=== PATIENT | female | born 1970 | race Two or more races ===

== ENCOUNTER 2024-10-15 17:24 | Inpatient (IN) | payer OTHER, MEDICAID, SELFPAY ==
[2024-10-15 17:58] VITALS: BP 151/89; PULSE 64; RESP 18; TEMP 37.1; O2SAT 98; BMI 33.8
--- NOTE | 2024-10-15 18:26 | XR_ITS ---
Examination: CT abdomen with intravenous contrast CT pelvis with intravenous contrast 2-D coronal reconstructions 2-D sagittal reconstructions Date and time of exam:October 15, 2024, 2038 hours INDICATIONS: Right lower abdominal pain beginning 2 days ago. CTDI: vol (mGy) 9.07. DLP: (mGycm) 502 Technique: Multiple axial sections of the abdomen and pelvis have been obtained. 64 slice high-resolution scanner used. 3 mm axial sections have been obtained, post intravenous injection of 60 cc Isovue-370. 2-D sagittal, coronal reconstructions obtained. Low dose protocols were performed. One or more of the following dose reduction techniques were used; automated exposure control, adjustment of the mA and/or KV according to patient size, use of iterative reconstruction technique. Findings: Diffuse fatty infiltration throughout the liver no focal liver or splenic lesions No gallstones Pancreas is not enlarged. No renal or ureteral calculi, no hydronephrosis Aorta normal size The appendix, coronal image 64 shows periappendiceal inflammatory change and is fluid-filled No pelvic abscess Anteverted uterus Grade 1 anterolisthesis L4 on L5 IMPRESSION: Acute appendicitis, no perforation or pelvic abscess
--- NOTE | 2024-10-15 18:26 | XR_ITS ---
Examination: Transvaginal ultrasound of the pelvis, complete Technique: Transvaginal sonographic images pelvis performed using owens scale imaging Exam date and time: October 15, 2024 1916 hours INDICATIONS: Right lower pelvic pain beginning 2 days ago FINDINGS: Uterus 7.8 cm endometrial stripe 0.4 cm No uterine mass Right ovary 2.0 cm arterial flow Left ovary 2.2 cm arterial flow IMPRESSION: Negative pelvic sonogram.
--- NOTE | 2024-10-15 18:27 | PD.EDRME ---
Rapid Medical Screening Exam E Arrival date/time: 10/15/24 17:24 53F with history of HTN presents to ED with 2 days of worsening RLQ pain. Pain is worse with movement. Patient denies diarrhea, dysuria, and vaginal bleeding. Chief Complaint: Abdominal Pain Time Seen by Provider: 10/15/24 17:38 Vital signs: Vital Signs Temperature 98.7 F 10/15/24 17:58 Pulse Rate 64 10/15/24 17:58 Respiratory Rate 18 10/15/24 17:58 Blood Pressure 151/89 H 10/15/24 17:58 Pulse Oximetry (%) 98 10/15/24 17:58 Oxygen Delivery Method Room Air 10/15/24 17:58
[2024-10-15 18:54] LABS: Basophils # (Auto) 0.1 Thou/mm3 (0.0-0.2); Basophils % (Auto) 1 % (0-2.5); Eosinophils # (Auto) 0.3 Thou/mm3 (0.0-0.5); Eosinophils % (Auto) 3 % (0-10); Hematocrit 42.1 % (36.0-46.0); Hemoglobin 14.3 g/dL (12.0-16.0); Immature Granulocytes Auto 0.02 Thou/mm3 (0.00-0.00); Lymphocytes # (Auto) 2.9 Thou/mm3 (1.0-4.8); Lymphocytes % (Auto) 32 % (10-50); Mean Corpuscular HGB Conc 34.0 g/dl (31.0-37.0); Mean Corpuscular Hemoglobin 29.3 pg (25.0-35.0); Mean Corpuscular Volume 86 fL (80-100); Monocytes # (Auto) 0.6 Thou/mm3 (0.0-0.8); Monocytes % (Auto) 6 % (0-12); Neutrophils # (Auto) 5.2 Thou/mm3 (1.8-7.7); Neutrophils % (Auto) 58 % (37-80); Nucleated Red Blood Cell # 0.00 Thou/mm3 (0.00-0.00); Nucleated Red Blood Cell % 0 /100 WBC (0); Platelet Count 173 Thou/mm3 (140-440); RDW Standard Deviation 39.2 fL (36.4-46.3); Red Blood Count 4.88 Miln/mm3 (4.00-5.20); White Blood Count 9.0 Thou/mm3 (3.6-11.0)
[2024-10-15 19:11] LABS: Alanine Aminotransferase 76 U/L (10-49); Albumin, Serum 5.1 gm/dL (3.5-5.0); Albumin/Globulin Ratio 1.8 (1.2-2.2); Alkaline Phosphatase 95 U/L (46-116); Anion Gap 10 (7-16); Aspartate Amino Transferase 65 U/L (0-34); BUN/Creatinine Ratio 14 Ratio (12-20); Bilirubin,Total 0.8 mg/dL (0.3-1.2); Blood Urea Nitrogen 10 mg/dL (9-23); Calcium 9.7 mg/dL (8.3-10.6); Calcium (Corrected) 9.7 mg/dL (8.5-10.1); Carbon Dioxide 28.8 mMol/L (20.0-31.0); Chloride 101 mMol/L (98-107); Creatinine (Component) 0.7 mg/dL (0.6-1.3); Estimated Creatinine Clearance 87.7 mL/min (>60); Globulin 2.8 gm/dL (2.3-3.5); Glucose 109 mg/dL (74-106); Osmolality,Calculated 279 (275-295); Potassium 3.8 mMol/L (3.4-5.1); Sodium 140 mMol/L (136-145); Total Protein 7.9 gm/dL (5.7-8.2); eGFR > 60 See Note
[2024-10-15 19:50] VITALS: BP 163/81; PULSE 62; RESP 18; TEMP 37; O2SAT 97
[2024-10-15] MEDS: MORPHINE SULF INJ 10 MG/ML VIAL 5 MG IVP (20:08)
[2024-10-15] MEDS: ONDANSETRON INJ 2 MG/ML INJ 2 ML 4 MG IVP (20:09)
--- NOTE | 2024-10-15 21:28 | PD.EDABDPN ---
ED Abdominal Pain RME/HPI General Chief Complaint: Abdominal Pain Stated complaint: Right lower quadrant abdominal pain Time seen by provider: 10/15/24 17:38 Arrival date/time: 10/15/24 17:24 RME / HPI RME / HPI narrative: 10/15/24 17:24 53F with history of HTN presents to ED with 2 days of worsening RLQ pain. Pain is worse with movement. Patient denies diarrhea, dysuria, and vaginal bleeding. Dr. Reyes?s Main ED Evaluation: 53yo female presenting with RLQ pain x 2 days described as aching and increasing with movement. No abnormal vaginal bleeding or dysuria. Notes subjective fever, but denies chills. No vomiting or diarrhea. Appetite diminished. PMH includes HTN. PSH unremarkable. Related Data Home Medications ?Medication ?Instructions ?Recorded ?Confirmed amlodipine 10 mg tablet 10 mg PO DAILY 10/15/24 10/15/24 lisinopril 40 mg tablet 40 mg PO DAILY 10/15/24 10/15/24 Previous Rx's ?Medication ?Instructions ?Recorded docusate sodium 100 mg capsule 100 mg PO BID #30 caps 10/16/24 hydrocodone 5 mg-acetaminophen 325 1 tab PO Q6HR PRN pain (scale 10/16/24 mg tablet score 7-10) #10 tabs ibuprofen 600 mg tablet 600 mg PO Q8H PRN pain (scale 10/16/24 score 4-6) #15 tabs Allergies Allergy/AdvReac Type Severity Reaction Status Date / Time NKA Allergy Unknown Uncoded 10/15/24 17:27 No Known Allergies Allergy Unknown Uncoded 10/15/24 17:27 Review of Systems Review of Systems Systems Reviewed: All systems reviewed, normal except as documented Past Medical History Past Medical History CARDIAC: Negative Cardiac Disorders or Congestive Heart Failure RESPIRATORY: Negative Chronic Obstructive Pulmonary Disease (COPD) or Asthma GENITOURINARY: Negative Renal Disease ENDOCRINE: Negative Diabetes Mellitus Type 1 or Diabetes Mellitus Type 2 HEMATOLOGIC: Negative Sickle Cell Disease Social History SMOKING STATUS: Never smoker ED Exam Narrative Physical exam: GENERAL APPEARANCE: alert and oriented x 4, appears apprehensive, c/o RLQ pain VITALS: All vitals were reviewed and the pulse ox is 97% on room air, which is normal according to my interpretation. HEENT: Normocephalic, atraumatic; pupils equal, round, reactive to light; EOMI; mucous membranes pink, moist; oropharynx clear NECK: Supple LUNGS: CTABL; no wheezes, no rales, no rhonchi HEART: Regular rate, regular rhythm; normal S1, S2; no murmurs ABDOMEN: non distended; soft, RLQ tenderness, equivocal peritoneal findings EXTREMITIES: atraumatic; no edema NEUROLOGIC: awake; alert and oriented x4; cranial nerves II-XII grossly intact; no focal sensory or motor deficits PSYCHIATRIC: appropriate mood and affect SKIN: warm, dry, normal color; no rashes Course Quality Measures none Orders Category Date Time Status CT Screening NOW Care 10/15/24 18:27 Completed Insert IV NOW Care 10/15/24 18:[address] abdomen pelvis w con Stat Exams 10/15/24 18:26 Completed US transvaginal Stat Exams 10/15/24 18:26 Completed CBC Stat Lab 10/15/24 18:46 Completed CMP [Comprehensive Metabolic Panel] Stat Lab 10/15/24 18:46 Completed Urinalysis, C/S if Indicated Stat Lab 10/15/24 22:16 Completed Morphine Inj Med 10/15/24 21:49 Discontinued 4 mg IVP Q1H PRN Morphine Inj Med 10/15/24 18:26 Discontinued 5 mg IVP X1 ONE Ondansetron Inj [Zofran Inj] Med 10/15/24 18:26 Discontinued 4 mg IVP X1 ONE Ondansetron Inj [Zofran Inj] Med 10/15/24 21:50 Discontinued 4 mg IVP X1 ONE Piper/Tazo 3.375 gm Premix [Zosyn] Med 10/15/24 21:49 Discontinued 3.375 gm in 50 ml IV X1 Vital Signs Vital signs: Vital Signs Temperature 98.7 F 10/15/24 17:58 Pulse Rate 64 10/15/24 17:58 Respiratory Rate 18 10/15/24 17:58 Blood Pressure 151/89 H 10/15/24 17:58 Pulse Oximetry (%) 98 10/15/24 17:58 Oxygen Delivery Method Room Air 10/15/24 17:58 Abdominal Pain MDM MDM Narrative MDM Narrative:: Scribe Attestation: 10/15/24 - Brinda García am scribing for and in the presence of Dr. D?Agostino. 53yo female presenting with RLQ pain x 2 days described as aching and increasing with movement. No abnormal vaginal bleeding or dysuria. Please see PE findings. Lab markers demonstrate normal WBC count, normal Hgb, and normal Platelet counts. Chemistries unremarkable except for mildly elevated blood sugar of 109. CT abdomen pelvis shows acute uncomplicated appendicitis. Patient hydrated with saline and given low dose narcotic analgesic and antiemetic with mild-moderate relief. Antibiotics initiated. No signs of sepsis. General surgery consulted. Hospitalist to admit. Patient data External records reviewed:: [facility] previous records (Per chart review, patient has no previous ED visits or admissions to this facility.) Clinical information provided by:: patient Social determinants that could affect healthcare access:: none Patient has the following chronic illnesses:: none How is presenting disease/condition affected by chronic disease/condition?: no chronic disease Evaluation data The following diagnostics were reviewed and interpreted by me:: lab results and radiology exam(s) Lab and/or radiology exams considered but not ordered:: none Interpretation Summary: [facility] Report Signed Patient: JIM ESPOSITO [place]. Record#: [id number] Birthdate: 1970 Age/Sex: 53 / F Location: [facility] Attending Dr: Ordering Physician: Neal Rivera PA-C Date of Service: 10/15/24 Procedure(s): US transvaginal Accession Number(s): [id number] cc: Gabriel Moreno PA-C; Donnie Nbole MD; Neal Rivera PA-C~ Examination: Transvaginal ultrasound of the pelvis, complete Technique: Transvaginal sonographic images pelvis performed using owens scale imaging Exam date and time: October 15, 2024 1916 hours INDICATIONS: Right lower pelvic pain beginning 2 days ago FINDINGS: Uterus 7.8 cm endometrial stripe 0.4 cm No uterine mass Right ovary 2.0 cm arterial flow Left ovary 2.2 cm arterial flow IMPRESSION: Negative pelvic sonogram. Dictated By: Donnie Noble MD Signed By: <Electronically signed by Donnie Noble MD in OV> 10/15/242006 [facility] Report Signed Patient: JIM ESPOSITO Record#: [id number] Birthdate: 1970 Age/Sex: 53 / F Location: [facility] Attending Dr: Ordering Physician: Neal Rivera PA-C Date of Service: 10/15/24 Procedure(s): CT abdomen pelvis w con Accession Number(s): [id number] cc: Gabriel Moreno PA-C; Donnie Noble MD; Neal Rivera PA-C~ Examination: CT abdomen with intravenous contrast CT pelvis with intravenous contrast 2-D coronal reconstructions 2-D sagittal reconstructions Date and time of exam:October 15, 2024, 2038 hours INDICATIONS: Right lower abdominal pain beginning 2 days ago. CTDI: vol (mGy) 9.07. DLP: (mGycm) 502 Technique: Multiple axial sections of the abdomen and pelvis have been obtained. 64 slice high-resolution scanner used. 3 mm axial sections have been obtained, post intravenous injection of 60 cc Isovue-370. 2-D sagittal, coronal reconstructions obtained. Low dose protocols were performed. One or more of the following dose reduction techniques were used; automated exposure control, adjustment of the mA and/or KV according to patient size, use of iterative reconstruction technique. Findings: Diffuse fatty infiltration throughout the liver no focal liver or splenic lesions No gallstones Pancreas is not enlarged. No renal or ureteral calculi, no hydronephrosis Aorta normal size The appendix, coronal image 64 shows periappendiceal inflammatory change and is fluid-filled No pelvic abscess Anteverted uterus Grade 1 anterolisthesis L4 on L5 IMPRESSION: Acute appendicitis, no perforation or pelvic abscess Dictated By: Donnie Noble MD Signed By: <Electronically signed by Donnie Noble MD in OV> 10/15/24 1623 Medications / Prescriptions Medications or Prescriptions considered but not ordered:: none Medication administrations:: Medication Administration History Discontinued Medications Acetaminophen (Acetaminophen 325 Mg Tablet) 650 mg PO Q6H PRN PRN Reason: Fever >100.3 or pain 1-3 Stop: 11/14/24 22:52 Hydrocodone Bitart/Acetaminophen (Hydrocodone/Apap 5/325 Tablet) 1 tab PO Q6HR PRN; Protocol PRN Reason: PAIN Stop: 10/21/24 13:44 Bupivacaine HCl (Bupivacaine Mpf 0.5% 30 Ml Vial) Confirm Administered Dose 30 ml .ROUTE .[facility] ONE Stop: 10/16/24 11:21 Cefoxitin Sodium (Cefoxitin Sod Inj 1 Gm Vial) Confirm Administered Dose 2 gm .ROUTE .[facility] ONE Stop: 10/16/24 12:16 Dexamethasone Sodium Phosphate (Dexamethasone Sod Phos Inj 10 Mg/Ml Vial) Confirm Administered Dose 10 mg .ROUTE .[facility] ONE Stop: 10/16/24 12:23 Docusate Sodium (Docusate Sod 100 Mg Capsule) 100 mg PO BID [facility]; Protocol Stop: 11/15/24 20:59 Enoxaparin Sodium (Enoxaparin Sod Inj 40 Mg/0.4 Ml Syringe) 40 mg SC QDAY [facility] Stop: 10/30/24 08:59 Ephedrine Sulfate (Ephedrine Sulf Inj 50 Mg/Ml Vial) Confirm Administered Dose [address] .[facility] ONE Stop: 10/16/24 12:29 Fentanyl Citrate (Fentanyl Cit Inj 50 Mcg/Ml Amp 2ml) Confirm Administered Dose 100 mcg .[address]TE .[facility] ONE Stop: 10/16/24 11:33 Fentanyl Citrate (Fentanyl Cit Inj 50 Mcg/Ml Amp 2ml) 50 mcg IVP Q5M PRN PRN Reason: PAIN SCALE 7-10 (Severe Stop: 10/16/24 13:47 Last Admin: 10/16/24 13:21 Dose: 50 mcg Documented By: SAMI Piperacillin/Tazobactam/Dextrose (Zosyn) 3.375 gm in 50 mls @ 100 mls/hr IV X1 ONE Stop: 10/15/24 22:18 Last Infusion: 10/15/24 23:54 Dose: Infused Documented By: Admin: 10/15/24 22:46 Dose: 100 mls/hr Documented By: ELIANA Sodium Chloride (Ns) 1,000 mls @ 85 mls/hr IV .[id number] [facility] Stop: 11/14/24 22:59 Last Admin: 10/16/24 14:15 Dose: 85 mls/hr Documented By: Infusion: 10/16/24 11:05 Dose: Infused Documented By: Admin: 10/15/24 23:19 Dose: 85 mls/hr Documented By: ZUNILDA Piperacillin/Tazobactam/Dextrose (Zosyn) 50 mls @ 100 mls/hr IV Q8HR [facility] Stop: 10/22/24 22:56 Piperacillin/Tazobactam/Dextrose (Zosyn) 3.375 g in 50 mls @ 100 mls/hr IV Q8HR [facility] Stop: 10/23/24 05:59 Last Admin: 10/16/24 14:15 Dose: 100 mls/hr Documented By: Infusion: 10/16/24 05:51 Dose: Infused Documented By: Admin: 10/16/24 05:21 Dose: 100 mls/hr Documented By: MIYA Acetaminophen (Ofirmev Inj) 1,000 mg in 100 mls @ 250 mls/hr IV Q6H PRN PRN Reason: PAIN 1-6 (mild-mod Stop: 10/17/24 11:46 Ketorolac Tromethamine (Ketorolac Inj 30 Mg/Ml Vial) Confirm Administered Dose 30 mg .ROUTE .[facility] ONE Stop: 10/16/24 12:23 Midazolam HCl (Midazolam Inj 1 Mg/Ml Vial 2 Ml) Confirm Administered Dose 2 mg .ROUTE .[facility] ONE Stop: 10/16/24 11:33 Morphine Sulfate (Morphine Sulf Inj 10 Mg/Ml Vial) 5 mg IVP X1 ONE Stop: 10/15/24 18:27 Last Admin: 10/15/24 20:08 Dose: 5 mg Documented By: ELIANA Morphine Sulfate (Morphine Sulf Inj 10 Mg/Ml Vial) 4 mg IVP Q1H PRN PRN Reason: Appendicitis Morphine Sulfate (Morphine Sulf Inj 10 Mg/Ml Vial) 2 mg IVP Q6HR PRN PRN Reason: PAIN SCALE 7-10 (Severe Stop: 10/20/24 22:52 Last Admin: 10/15/24 23:19 Dose: 2 mg Documented By: ZUNILDA Morphine Sulfate (Morphine Sulf Inj 10 Mg/Ml Vial) 4 mg IVP Q1H PRN PRN Reason: Appendicitis Ondansetron HCl (Ondansetron Inj 2 Mg/Ml Inj 2 Ml) 4 mg IVP X1 ONE; Protocol Stop: 10/15/24 18:27 Last Admin: 10/15/24 20:09 Dose: 4 mg Documented By: ELIANA Ondansetron HCl (Ondansetron Inj 2 Mg/Ml Inj 2 Ml) 4 mg IVP X1 ONE; Protocol Stop: 10/15/24 21:51 Last Admin: 10/15/24 23:24 Dose: Not Given Documented By: ZUNILDA Non-Admin Reason: Patient Refused Ondansetron HCl (Ondansetron Inj 2 Mg/Ml Inj 2 Ml) 4 mg IVP Q6H PRN; Protocol PRN Reason: NAUSEA OR VOMITING Stop: 11/14/24 22:52 Ondansetron HCl (Ondansetron Inj 2 Mg/Ml Inj 2 Ml) 4 mg IVP Q6HR PRN; Protocol PRN Reason: NAUSEA OR VOMITING Stop: 10/16/24 13:47 Ondansetron HCl (Ondansetron Inj 2 Mg/Ml Inj 2 Ml) Confirm Administered Dose 4 mg .ROUTE .[facility] ONE Stop: 10/16/24 12:23 Pantoprazole Sodium (Pantoprazole Inj 40 Mg Vial) 40 mg IVP QDAY SHEY Stop: 11/15/24 08:59 Last Admin: 10/16/24 08:36 Dose: 40 mg Documented By: LAYTON Propofol (Propofol Inj 10 Mg/Ml Vial 20 Ml) Confirm Administered Dose 200 mg IV .STK-MED ONE Stop: 10/16/24 11:33 Rocuronium [place] (Rocuronium Inj 10 Mg/Ml Vial 10 Ml) Confirm Administered Dose 100 mg .ROUTE .STK-MED ONE Stop: 10/16/24 11:33 Sennosides (Senna Tablet) 1 tab PO QDAY PRN; Protocol PRN Reason: constipation Stop: 11/14/24 22:52 Sugammadex Sodium (Sugammadex Inj 100 Mg/Ml 2ml Vial) Confirm Administered Dose 200 mg .ROUTE .STK-MED ONE Stop: 10/16/24 12:29 see above Consultations Consultation(s) initiated? (list below): Yes Consultation #1 (Physician, Specialty, Details): Discussed case with Dr. Patel from general surgery regarding consultation. Discussed patients ED course, exam findings, labs, and radiology results. Agrees to consult. Time: 22:07 Consultation #2 (Physician, Specialty, Details): Discussed case with the resident physician, attending Dr. Ott from Hospitalist service regarding admission. Discussed patients ED course, exam findings, labs, and radiology results. The Hospitalist agrees to accept the patient for admission. Time: 22:09 Diagnosis Differential diagnosis abdominal pain: acute appendicitis, diverticulitis and other (gastritis, cholelithiasis, cholecystitis) Most likely diagnosis given after review of the tests above:: acute appendicitis Admission Indicated Admission indicated?: indicated Admission Request Was there a request for admission?: Yes Admission Attestation Admission request attestation: Discussed case with [] from Hospitalist service regarding admission. Discussed patients ED course, exam findings, labs, and radiology results. The Hospitalist [agrees,declines] to accept the patient for admission. Disposition Plan Disposition Plan: Admit Discharge Plan Plan Patient Disposition: Admit Acute Care w/in Hospital Patient condition on transfer: Stable Problem List Clinical Impression: Acute appendicitis Patient/Caregiver Discharge Instructions Discharge Activity: activity as tolerated
[2024-10-15 22:11] VITALS: BP 139/48; PULSE 71; RESP 17; TEMP 37.2; O2SAT 98
[2024-10-15 22:20] LABS: Collection Type, Urine Clean Catch
[2024-10-15 22:28] LABS: Bilirubin,Urine Negative (Negative); Blood,Urine Negative (Negative); Clarity,Urine Clear (Clear/Hazy); Color,Urine Colorless (Lt Yel-Yel); Culture Indicated,Urine Not Indicated; Glucose, Urine Negative (Negative); Ketones,Urine Negative (Negative); Leukocyte Esterase,Urine Positive (Negative); Nitrite,Urine Negative (Negative); PH,Urine 7.0 (5.0-7.0); Protein,Urine Negative (Neg - Trace); RBC,Urine 1 /hpf (0-3); Specific Gravity,Urine 1.005 (1.001-1.035); Squamous Epithelial Cell,Urine 2 /hpf (0-5); Urobilinogen,Urine Negative mg/dL (0.0-1.0); WBC,Urine 2 /hpf (0-5)
[2024-10-15] MEDS: PIPER/TAZO 3.375 GM PREMIX 3.375 GM/50 ML BAG IV (22:46)
--- NOTE | 2024-10-15 23:00 | ESHP_ITS ---
Documentation for date of: 10/15/24 [facility] History of Present Illness Chief complaint: stomach pain History of present illness: Kavita Barnett is 53 yr female with no significant PMH presenting to ED due to LLQ abdominal pain since past 2 days. Mostly located in left lower quadrant, nonradiating, constant pain 9/10. Pain improved to 5/10 after receiving morhpine the ED. Endorses slightly decreased appetite with last oral intake around 11 AM. She denies any diarrhea, dysuria, constipation, vomiting. Has some mild nausea. Patient has not been started on any new medications recently. In ED BP was 151/89. Labs significant for AST 65, ALT 76. Otherwise unremarkable. CT A/P showed appendicitis, no perforation. While in the ED patient was given 5 mg morphine IV x 1, Zofran, Zosyn x 1. General surgery was consulted and patient to be admitted for management of appendicitis. PMH: none PSH: none FamHx: DM, HTN in mother Social: works on a farm, denies smoking, denies drinking Allergies: NKDA Meds: none Review of Systems Review of Systems Systems Reviewed: All systems reviewed, normal except as documented Exam Vital Signs Temp Pulse Resp BP Pulse Ox O2 Del Method 99 F 71 17 139/48 H 98 Room Air 10/15/24 22:11 10/15/24 22:11 10/15/24 22:11 10/15/24 22:11 10/15/24 22:11 10/15/24 22:11 Narrative Exam General: Middle age female,minor distress from pain, cooperative HEENT: NCAT, No JVD noted. Mucosa moist. Pupils are equal and reactive to light bilaterally Cardiovascular: Normal S1 and S2. Regular rate and rhythm. Respiratory: Lungs are clear to auscultation bilaterally. No wheezing or crackles heard. Abdomen: Soft, LLQ tenderness, no gaurding or ridgidity, not distended, normal bowel sounds. Skin: Warm to touch, dry, no rashes noted Musculoskeletal: No gross injuries. Able to move all 4 extremities. No pitting edema Neuro: Alert and oriented x3. No focal neuro deficits. Psych: Normal affect and mood Results: Labs 10/15/24 18:46 10/15/24 18:46 Labs: Short CBC 10/15/24 Range/Units 18:46 WBC 9.0 (3.6-11.0) Thou/mm3 Hgb 14.3 (12.0-16.0) g/dL Hct 42.1 (36.0-46.0) % Plt Count 173 (140-440) Thou/mm3 BMP 10/15/24 18:46 Sodium 140 Potassium 3.8 Chloride 101 Carbon Dioxide 28.8 BUN 10 Creatinine 0.7 Glucose 109 H Calcium 9.7 Liver Function 10/15/24 Range/Units 18:46 Total Bilirubin 0.8 (0.3-1.2) mg/dL AST 65 H (0-34) U/L ALT 76 H (10-49) U/L Alkaline Phosphatase 95 (46-116) U/L Albumin 5.1 H (3.5-5.0) gm/dL Quality Measures Quality Measures none Medications Home Medications and Allergies Home Medications ?Medication ?Instructions ?Recorded ?Confirmed ?Type amlodipine 10 mg tablet 10 mg PO DAILY 10/15/2411/01 History lisinopril 40 mg tablet 40 mg PO DAILY 10/15/2411/01 History Allergies Allergy/AdvReac Type Severity Reaction Status Date / Time NKA Allergy Unknown Uncoded 10/15/24 17:27 No Known Allergies Allergy Unknown Uncoded 10/15/24 17:27 Visit Medications Acetaminophen (Acetaminophen 325 Mg Tablet) 650 mg PO Q6H PRN PRN Reason: Fever >100.3 or pain 1-3 Stop: 11/14/24 22:52 Enoxaparin Sodium (Enoxaparin Sod Inj 40 Mg/0.4 Ml Syringe) 40 mg SC QDAY [facility] Stop: 10/30/24 08:59 Sodium Chloride (Ns) 1,000 mls @ 85 mls/hr IV .[id number] SHEY Stop: 11/14/24 22:59 Piperacillin/Tazobactam/Dextrose (Zosyn) 50 mls @ 100 mls/hr IV Q8HR [facility] Stop: 10/22/24 22:56 Morphine Sulfate (Morphine Sulf Inj 10 Mg/Ml Vial) 4 mg IVP Q1H PRN PRN Reason: Appendicitis Morphine Sulfate (Morphine Sulf Inj 10 Mg/Ml Vial) 2 mg IVP Q6HR PRN PRN Reason: PAIN SCALE 7-10 (Severe Stop: 10/20/24 22:52 Ondansetron HCl (Ondansetron Inj 2 Mg/Ml Inj 2 Ml) 4 mg IVP Q6H PRN; Protocol PRN Reason: NAUSEA OR VOMITING Stop: 11/14/24 22:52 Pantoprazole Sodium (Pantoprazole Inj 40 Mg Vial) 40 mg IVP QDAY SHEY Stop: 11/15/24 08:59 Sennosides (Senna Tablet) 1 tab PO QDAY PRN; Protocol PRN Reason: constipation Stop: 11/14/24 22:52 Discontinued Medications Piperacillin/Tazobactam/Dextrose (Zosyn) 3.375 gm in 50 mls @ 100 mls/hr IV X1 ONE Stop: 10/15/24 22:18 Last Admin: 10/15/24 22:46 Dose: 100 mls/hr Morphine Sulfate (Morphine Sulf Inj 10 Mg/Ml Vial) 5 mg IVP X1 ONE Stop: 10/15/24 18:27 Last Admin: 10/15/24 20:08 Dose: 5 mg Ondansetron HCl (Ondansetron Inj 2 Mg/Ml Inj 2 Ml) 4 mg IVP X1 ONE; Protocol Stop: 10/15/24 18:27 Last Admin: 10/15/24 20:09 Dose: 4 mg Ondansetron HCl (Ondansetron Inj 2 Mg/Ml Inj 2 Ml) 4 mg IVP X1 ONE; Protocol Stop: 10/15/24 21:51 Assessment & Plan Plan Kavita Barnett is 53 yr female with no significant PMH presenting to ED due to LLQ abdominal pain since past 2 days. Mostly located in left lower quadrant, nonradiating, constant pain 9/10. General surgery Dr. Patel was consulted. Patient to be admitted for acute appendicitis. #Abdominal pain 2/2 acute appendicitis LLQ abdominal pain since past 2 days. Mostly located in left lower quadrant, nonradiating, constant pain 9/10. Pain improved to 5/10 after receiving morhpine the ED. Endorses slightly decreased appetite with last oral intake around 11 AM. She denies any diarrhea, dysuria, constipation, vomiting. Has some mild nausea. Patient has not been started on any new medications recently. In ED BP was 151/89. Labs significant for AST 65, ALT 76. Otherwise unremarkable. CT A/P showed appendicitis, no perforation. While in the ED patient was given 5 mg morphine IV x 1, Zofran, Zosyn x 1. -gen surgery Dr. Patel consulted, appreciate recs -NPO -blood cultures pending -IV Zosyn 3.375g TID -IV morphine 2mg q6hr PRN for pain -NS maintainence 85 cc/hr Health maintenance: Dispo: med surg, appendicitis FEN: regular DVT prophylaxis: Lovenox CODE STATUS: Full code The patient's management plan was discussed with my attending physician Dr. Ott. Tamara Wiggins, PGY-2 Attending Provider Attestation/Addendum I attest that I was physically present for the evaluation, physical examination, lab and imaging review of the patient with the residents. I discussed the case with the residents and agree with the findings and plans of care as documented above. After examination of the patient and review of the clinical data I feel that this patient needs admission to the hospital for further treatment/evaluation. Patient is a 53 years old female without known past medical history who presented to the ED with complaint of left lower quadrant abdominal pain. Patient has been having the symptoms for last 2 days. Her pain is mostly located around left lower quadrant, nonradiating and constant. She denied any fever, diarrhea, constipation. She denied any vomiting but endorses some nausea. In the ED, patient was hypertensive with blood pressure of 151/89 on presentation. Lab results showed AST of 65 and ALT 76, otherwise nonconcerning. Abdomen/pelvis CT was done, which showed acute appendicitis without perforation or abscess. Pelvic ultrasound was also obtained, which was a normal study. General surgery was contacted by ED, recommended admission for further management. We will admit the patient for management of acute appendicitis and intractable abdominal pain. We will start her on broad-spectrum IV antibiotics with IV Zosyn, analgesic regimen, maintenance IV hydration and antiemetics. We will keep patient n.p.o. and hold chemical DVT prophylaxis for now until evaluated by general surgery. Jeanine Ott MD
[2024-10-15 23:08] VITALS: PULSE 65; RESP 16; RESP 97
[2024-10-15] MEDS: SODIUM CHLORIDE 0.9% 1000 ML 1,000 ML 85 ML IV (23:19)
[2024-10-15] MEDS: MORPHINE SULF INJ 10 MG/ML VIAL 2 MG IVP (23:19)
[2024-10-16] VITALS (10 sets, daily range): BP systolic 110–138; BP diastolic 63–77; PULSE 50–82; RESP 14–94; TEMP 36.2–36.9; O2SAT 92–97; BMI 34.1
--- NOTE | 2024-10-16 00:15 | PC.NURSE ---
Pt came in to the floor, alert and oriented accompanied by her . Pt has no C/O of pain at this time. Pt instructed to keep NPO for possible surgery in AM, verbalizes understanding.
[2024-10-16] MEDS: PIPER/TAZO 3.375 GM PREMIX 3.375 G/50 ML BAG IV ×2 (05:21→14:15)
[2024-10-16 06:21] LABS: Basophils # (Auto) 0.1 Thou/mm3 (0.0-0.2); Basophils % (Auto) 1 % (0-2.5); Eosinophils # (Auto) 0.2 Thou/mm3 (0.0-0.5); Eosinophils % (Auto) 3 % (0-10); Hematocrit 37.4 % (36.0-46.0); Hemoglobin 12.8 g/dL (12.0-16.0); Immature Granulocytes Auto 0.02 Thou/mm3 (0.00-0.00); Lymphocytes # (Auto) 2.6 Thou/mm3 (1.0-4.8); Lymphocytes % (Auto) 33 % (10-50); Mean Corpuscular HGB Conc 34.2 g/dl (31.0-37.0); Mean Corpuscular Hemoglobin 30.3 pg (25.0-35.0); Mean Corpuscular Volume 89 fL (80-100); Monocytes # (Auto) 0.5 Thou/mm3 (0.0-0.8); Monocytes % (Auto) 6 % (0-12); Neutrophils # (Auto) 4.4 Thou/mm3 (1.8-7.7); Neutrophils % (Auto) 56 % (37-80); Nucleated Red Blood Cell # 0.00 Thou/mm3 (0.00-0.00); Nucleated Red Blood Cell % 0 /100 WBC (0); Platelet Count 141 Thou/mm3 (140-440); RDW Standard Deviation 40.8 fL (36.4-46.3); Red Blood Count 4.22 Miln/mm3 (4.00-5.20); White Blood Count 7.8 Thou/mm3 (3.6-11.0)
[2024-10-16 06:40] LABS: Alanine Aminotransferase 64 U/L (10-49); Albumin, Serum 4.2 gm/dL (3.5-5.0); Albumin/Globulin Ratio 1.8 (1.2-2.2); Alkaline Phosphatase 75 U/L (46-116); Anion Gap 12 (7-16); Aspartate Amino Transferase 63 U/L (0-34); BUN/Creatinine Ratio 17 Ratio (12-20); Bilirubin,Total 0.9 mg/dL (0.3-1.2); Blood Urea Nitrogen 10 mg/dL (9-23); Calcium 8.9 mg/dL (8.3-10.6); Calcium (Corrected) 8.9 mg/dL (8.5-10.1); Carbon Dioxide 27.4 mMol/L (20.0-31.0); Cardiac Risk Estimate 5.1 RATIO (3.7-5.6); Chloride 103 mMol/L (98-107); Cholesterol 164 mg/dL (132-200); Creatinine (Component) 0.6 mg/dL (0.6-1.3); Estimated Creatinine Clearance 102.8 mL/min (>60); Globulin 2.4 gm/dL (2.3-3.5); Glucose 130 mg/dL (74-106); HDL Cholesterol 32 mg/dL (40-60); LDL Cholesterol,Calculated 113 mg/dL (0-130); Magnesium 2.0 mg/dL (1.6-2.6); Osmolality,Calculated 284 (275-295); Phosphorous 4.3 mg/dL (2.4-5.1); Potassium 3.6 mMol/L (3.4-5.1); Sodium 142 mMol/L (136-145); Total Protein 6.6 gm/dL (5.7-8.2); Triglycerides 97 mg/dL (30-150); eGFR > 60 See Note
--- NOTE | 2024-10-16 11:49 | PD.SURCONS ---
HPI Consult details Consult date: 10/16/24 Reason for consultation narrative: Right lower quadrant abdominal pain with nausea and vomiting History of present illness: 53-year-old obese female with history of hypertension presented to the emergency department with acute onset of abdominal pain. Her pain started 2 days ago around periumbilical region. The pain was initially intermittent. Since yesterday her pain has become persistent, progressively worse and localized to her right lower quadrant. She had an episode of nausea and vomiting, but denies fever, chills, diarrhea, constipation or dysuria. She denies having similar symptoms in the past. Review of Systems Constitutional Constitutional: Denies chills and Denies fever(s) Cardiovascular Cardiovascular: Denies chest pain Respiratory Respiratory: Denies cough Gastrointestinal Gastrointestinal: Reports abdominal pain, Reports nausea and Reports vomiting Genitourinary Genitourinary: Denies difficulty voiding Hematologic/Lymphatic Hematologic/Lymphatic: Denies easy bleeding and Denies easy bruising Past Medical History Surgical History OTHER SURGICAL HX: Denies any surgeries in the past Social History SMOKING STATUS: Never smoker SUBSTANCE USE: does not use ALCOHOL: Never Meds Home Medications and Allergies Home Medications ?Medication ?Instructions ?Recorded ?Confirmed ?Type amlodipine 10 mg tablet 10 mg PO DAILY 10/15/24 10/15/24 History lisinopril 40 mg tablet 40 mg PO DAILY 10/15/24 10/15/24 History Allergies Allergy/AdvReac Type Severity Reaction Status Date / Time NKA Allergy Unknown Uncoded 10/15/24 17:27 No Known Allergies Allergy Unknown Uncoded 10/15/24 17:27 Exam Vital Signs Temp Pulse Resp BP Pulse Ox O2 Del Method 97.8 F 50 L 16 115/63 93 L Room Air 10/16/24 08:00 10/16/24 08:00 10/16/24 08:00 10/16/24 08:00 10/16/24 08:00 10/16/24 08:00 Constitutional Constitutional: no acute distress Routine Abdominal Exam Abdominal: Present soft, normoactive bowel sounds and tenderness (Right lower quadrant tenderness to palpation with guarding, no rebound tenderness or peritonitis at this time); Absent distended Results Results: Laboratory Laboratory results: results reviewed Results: Imaging CT scan - abdomen: report reviewed and image reviewed CT scan - pelvis: report reviewed and image reviewed Assessment & Plan Problem List (1) Acute appendicitis: Status: Acute Plan Will take patient to the operating room for laparoscopic possible open appendectomy. Risks include but not limited to infection, bleeding, injury to bowel, bladder, surround neurovascular structures, abdominal sepsis and or abdominal abscess, need for further procedure and or operation discussed with the patient via diplomatic interpreter. Benefits and alternatives explained to her, all her questions answered, she agreed and consented to proceed with the operation. (1) Acute appendicitis Qualifiers: Acute appendicitis type: unspecified acute appendicitis type Qualified Code(s): K35.80 - Unspecified acute appendicitis
--- NOTE | 2024-10-16 12:41 | ESOP_ITS ---
Date of Procedure 10/16/24 Pre Op Diagnosis Acute appendicitis Post Op Diagnosis Acute appendicitis Procedure Laparoscopic appendectomy Findings Inflamed, dilated and hyperemic appendix without perforation Procedure Description Patient was brought into the operating room in supine position. After administration of general endotracheal anesthesia, abdomen was prepped and draped in standard surgical manner. A Veress needle was inserted through the umbilicus and pneumoperitoneum was obtained up to 15 mmHg. The Veress needle was removed and a 5 mm umbilical incision was made. A 5 mm trocar was placed and laparoscopic camera was inserted. Under direct visualization a laparoscopic camera a 5 mm trocar placed in suprapubic region and a 10 mm trocar placed in left lower quadrant. The abdomen was inspected, the cecum was identified and followed until the appendix was identified. The appendix was noted to be inflamed, dilated and hyperemic without perforation. A window was created between the appendix and mesoappendix and the appendix was divided near the appendix and cecal junction with blue Endo RELL stapling device. The mes oappendix was divided with owens Endo RELL stapling device. The appendix was placed inside an Endo Catch and removed from the abdomen utilizing left lower quadrant trocar site. Abdomen and pelvis copiously and thoroughly washed and irrigated, all the fluids were suctioned and the suctioned fluid returned clear. Hemostasis was adequate and satisfactory, staple lines were intact without bleeding or any leakage. Left lower quadrant trocar sites fascial defect was closed with 0 Vicryl using Endo closure device. Instruments and trocars removed, pneumoperitoneum was evacuated and the incisions closed with 4-0 Monocryl subcuticular fashion. Instruments, needles and sponge counts were reported to be correct ??2. Patient tolerated the procedure well, was extubated, breathing spontaneously and without difficulty and was transferred to postanesthesia care in stable condition. Anesthesia GETA and local Pathology / specimen Other (Appendix) Estimated Blood Loss 10 Condition Stable Disposition PACU Surgeon Antione Patel MD Surgical Staff Operation Date: 10/16/24 11:45 <No data on this case meets the specified criteria>
--- NOTE | 2024-10-16 12:49 | SUR.PHASEI ---
received pt and report from RICKEY Moy and YOAN Ace, pt sedated, vss. dermabond dressing to abd x3, CDI.
--- NOTE | 2024-10-16 13:03 | SUR.PHASEI ---
pt awake, follows commands, vss, dressing remains cdi.
--- NOTE | 2024-10-16 13:10 | SUR.PHASEI ---
pt tolerating ice chips, no s/s of distress. pt denies any pain or nausea.
[2024-10-16] MEDS: fentaNYL CIT INJ 50 mCg/ML AMP 2ML IVP (13:21)
--- NOTE | 2024-10-16 13:28 | SUR.PHASEI ---
report given to RN Ric, pt's vss, pt awake, A&ox4, no distress noted. dressing remain cdi. pt ready to transfer back.
[2024-10-16] MEDS: SODIUM CHLORIDE 0.9% 1000 ML 1,000 ML 85 ML IV (14:15)
--- NOTE | 2024-10-16 15:43 | ESDS_ITS ---
<Statement entered by Lola He MD - 10/16/24 16:12> I have reviewed the note and agree with the resident's assessment & plan with exceptions as below. I have personally reviewed labs, imaging, home meds/prior records, examined the patient, formulated and discussed management plan with the IM team. Patient examined at bedside today. Patient is status post lap appendectomy. Patient was recommended to follow-up with her general surgeon, Dr Patel within 1 week. Patient was given Colace, [place] and ibuprofen upon discharge. Patient was then discharged with the following instructions as below. Lola He Internal Medicine PGY-2 Planned Discharge Date 10/16/24 DS: Providers Provider Date of admission: 10/15/24 22:53 Primary care physician: Gabriel Moreno PA-C Admitting Provider: Jeanine Ott MD Attending Provider on Admission: Jeanine Ott MD Consults: 10/15/24 23:21 Consult to General Surgery Routine Comment: appendicitis Consulting Provider: Antione Patel Attending Provider on DC: Vikram Carlos DO Discharging Provider: Vikram Carlos DO DS: Diagnosis Problem List Completed Was Problem List Reviewed/Reconciled?: Yes Hospital Course Hospital Course Hospital course: Kavita Barnett is 53 yr female with no significant PMH presenting to ED at [facility] due to LLQ abdominal pain since past 2 days. General surgery was consulted and patient to be admitted for management of appendicitis. While in the ED patient was given 5 mg morphine IV x 1, Zofran, Zosyn x 1. Patient's CT A/P showed appendicitis without perforation. Patient's surgery of laparascopic appendectomy went well without complications. Patient was seen in room on the floors afterward in good spirits. Patient was given a medical note for her work. Discharge Instructions May shower in 24 hours. Avoid lifting, straining, pulling or pushing for 4 weeks. May take over the counter laxatives if no bowel movement in 2 days. Follow up with Dr. Patel in 2 weeks, call [phone] for an appointment. May have clear liquids today, may advance diet as tolerated tomorrow. Follow-up with the primary care physician within a week from discharge In case of worsening of your symptoms please return to the ED as soon as possible Admission Diagnosis #Abdominal pain 2/2 acute appendicitis Patient plan of care was discussed with the attending physician, Dr. Carl Saavedra MD PGY-1 Time Spent with Patient Time attestation: Total time spent providing and/or coordinating discharge services: Time spent: Greater than 30 minutes Exam Vital Signs Temp Pulse Resp BP Pulse Ox O2 Del Method O2 Flow Rate 97.1 F 64 15 125/76 96 Room Air 6 10/16/24 13:20 10/16/24 13:20 10/16/24 13:20 10/16/24 13:20 10/16/24 13:20 10/16/24 08:00 10/16/24 13:00 Narrative Exam General: Middle age female, no acute distress, cooperative HEENT: NCAT, No JVD noted. Mucosa moist. Pupils are equal and reactive to light bilaterally Cardiovascular: Normal S1 and S2. Regular rate and rhythm. Respiratory: Lungs are clear to auscultation bilaterally. No wheezing or crackles heard. Abdomen: Soft, non-tender, not distended, normal bowel sounds. Skin: Warm to touch, dry, no rashes noted Musculoskeletal: No gross injuries. Able to move all 4 extremities. No pitting edema Neuro: Alert and oriented x3. No focal neuro deficits. Psych: Normal affect and mood Discharge Plan Plan Patient Disposition: HOME (Self Care) Patient condition on transfer: Stable Prescriptions/Referrals Prescriptions/Med Rec: New docusate sodium 100 mg Capsule 100 mg PO BID Qty: 30 0RF hydrocodone-acetaminophen 5-325 mg Tablet 1 tab PO Q6HR MDD 4 PRN (Reason: pain (scale score 7-10)) Qty: 10 0RF ibuprofen 600 mg tablet 600 mg PO Q8H PRN (Reason: pain (scale score 4-6)) Qty: 15 0RF Continued amlodipine 10 mg tablet 10 mg PO DAILY lisinopril 40 mg tablet 40 mg PO DAILY Referrals: Gabriel Moreno PA-C [Primary Care Provider] - Patient/Caregiver Discharge Instructions Discharge Activity: activity as tolerated Education Materials: Preventing Surgical Site Infections Print Language: Vietnamese Activity Restrictions/Additional Instructions: May shower in 24 hours. Avoid lifting, straining, pulling or pushing for 4 weeks. May take over the counter laxatives if no bowel movement in 2 days. Follow up with Dr. Patel in 2 weeks, call [phone] for an appointment. May have clear liquids today, may advance diet as tolerated tomorrow. Follow-up with the primary care physician within a week from discharge In case of worsening of your symptoms please return to the ED as soon as possible Stand Alone Forms: Deanna Award Info., Patient Portal Info Letter Discharge Order Discharge Orders: Discharge (Routine); Ordered 10/16/24 Ordered By: Maria Teresa Vuong Quality Discharge Quality Measures none (surgery done; patient is ambulatory) MD Attestestation MD Attestation I have discussed and was present for the essential components of the discharge history, physical examination, diagnosis, and discharge treatment plan with the resident. I agree with the patient's discharge care as documented by the resident and amended herein by me. Ej Carlos DO. The patient understood all discharge instructions, all questions were answered satisfactorily. The patient was instructed to return to the Emergency Department is symptoms worsened or persisted. Patient did have an uncomplicated appendectomy performed today, per surgery, patient can be discharged home. Patient was stable, afebrile, tolerating p.o. intake at time of discharge home. Although this document has been carefully reviewed, there may still be some phonetic and other typographical errors. These errors are purely grammatical due to imperfections in the software program and should not be construed in any way to compromise the substance of the patient's medical care during this visit.
== END 2024-10-16 18:02 | disposition home or self-care (01) | DRG 399 ==
LOC: SERX 22:08 → SERHOLD 23:56 → S3NX 10-16 00:16
PROVIDERS: Physician Assistant; Surgery; Admitting Provider Student in an Organized Health Care Education/Training Program; Emergency Provider Emergency Medicine; PCP Physician Assistant; Visit Provider Student in an Organized Health Care Education/Training Program
PROC: 0DTJ4ZZ Resection of Appendix, Percutaneous Endoscopic Approach (ICD-10-PCS; CPT 44970; principal; 2024-10-16 11:30)
DX: K35.80 Unspecified acute appendicitis (principal); I10 Essential (primary) hypertension
CPT/HCPCS: 36415; 74177; 76830; 80053; 80061; 81001; 83735; 84100; 85025; 87040; 87086; 96361; 96365; 96366; 96375; 96376; 99283; A4217; A4649; J0694; J1100; J1885; J2250; J2270; J2405; J2470; J2543; J2704; J3010; J3490; J7030; Q9967